=== PATIENT | male | born 1975 | race African-American/Black ===

== ENCOUNTER 2018-12-21 16:19 | Inpatient (IN) | payer MEDICAID ==
[~2018-12-21] VITALS: Ht 175.3 cm; Wt 108.9 kg
[2018-12-21 16:47] VITALS: Ht 175.3 cm; Wt 108.9 kg
[2018-12-21 17:17] LABS: BASOPHIL % 0.4 % (0-2); PLATELET COUNT 134 x10^3mcL (130-400)
[2018-12-21 17:18] LABS: RED CELL DISTRIBUTION WIDTH 15.1 % (11.5-14.5)
[2018-12-21 17:25] LABS: CALCIUM 8.8 mg/dL (8.5-10.1); CHLORIDE SERUM 103 mmol/L (98-107); GFR1 > 60 mL/min; GLUCOSE SERUM 98 mg/dL (74-106); SODIUM SERUM 139 mmol/L (136-145)
[2018-12-21 17:30] LABS: ALBUMIN 3.8 g/dL (3.4-5.0); ALKALINE PHOSPHATASE 130 U/L (46-116); ALT/SGPT 46 U/L (16-63); AST/SGOT 43 U/L (15-37); BILIRUBIN TOTAL 0.52 mg/dL (0.20-1.00); TOTAL PROTEIN, SERUM 7.9 g/dL (6.4-8.2)
[2018-12-21] MEDS ORDERED: ASPIR 8181 MG PO (19:16)
[2018-12-21] MEDS ORDERED: CARVEDILOL25 M1 PO (19:16)
[2018-12-21] MEDS ORDERED: NOR10 PO (19:16)
[2018-12-21] MEDS ORDERED: LISINOPRIL40 MG PO (19:16)
[2018-12-21 20:18] LABS: MAGNESIUM 1.7 mg/dL (1.8-2.4); PHOSPHOROUS 3.5 mg/dL (2.5-4.9)
[2018-12-21 20:26] LABS: FREE T4 0.83 ng/dL (0.76-1.46); FREE THYROXINE INDEX 2.4 ug/dL (1.4-4.5); T4(THYROXINE) 6.3 ug/dL (4.7-13.3)
[2018-12-21 20:29] LABS: T3 TOTAL 1.15 ng/mL
[2018-12-21 20:32] LABS: UA SPECIFIC GRAVITY 1.015 (1.005-1.035); microscopic required? YES; urine erythrocyte TRACE (NEGATIVE)
[2018-12-21 20:45] LABS: AMPHETAMINE QUAL UR NONE DETECTED (See below)
[2018-12-21 22:06] VITALS: BP 137/95
[2018-12-22 05:20] VITALS: BP 121/77
[2018-12-22 05:46] VITALS: BP 121/77
[2018-12-22 06:38] LABS: BASOPHIL % 0.5 % (0-2)
[2018-12-22 06:52] LABS: PLATELET COUNT 121 x10^3mcL (130-400); RED CELL DISTRIBUTION WIDTH 15.5 % (11.5-14.5)
[2018-12-22 07:08] LABS: CALCIUM 8.3 mg/dL (8.5-10.1); CARBON DIOXIDE 25.9 mmol/L (21-32); CHLORIDE SERUM 105 mmol/L (98-107); CREATININE SERUM 1.2 mg/dL (0.7-1.3); GFR1 > 60 mL/min; GLUCOSE SERUM 86 mg/dL (74-106); MAGNESIUM 1.5 mg/dL (1.8-2.4); PHOSPHOROUS 4.8 mg/dL (2.5-4.9); POTASSIUM SERUM 3.9 mmol/L (3.5-5.1); SODIUM SERUM 141 mmol/L (136-145)
[2018-12-22 08:15] VITALS: BP 141/96
[2018-12-22 12:20] VITALS: BP 129/84
[2018-12-22 14:14] VITALS: BP 129/84
== END 2018-12-22 15:37 | disposition home or self-care (01) | DRG 203 ==
LOC: ED 16:19 → DU 19:44
PROVIDERS: ADMIT General Practice
DX: M94.0 Chondrocostal junction syndrome [Tietze] (principal); E83.42 Hypomagnesemia; Z86.74 Personal history of sudden cardiac arrest; I16.0 Hypertensive urgency; Z79.82 Long term (current) use of aspirin; Z68.35 Body mass index [BMI] 35.0-35.9, adult; Z95.810 Presence of automatic (implantable) cardiac defibrillator
CPT/HCPCS: 83880; 84439; G0378; J1885; J3475; J7030

== ENCOUNTER 2019-04-07 13:27 | Emergency (ER) | payer MEDICAID ==
[~2019-04-07] VITALS: Ht 175.3 cm; Wt 95.3 kg
[~2019-04-07 13:27] MED LIST: ASPIR 8181 MG PO; CARVEDILOL25 M1 PO; LISINOPRIL40 MG PO; NOR10 PO
[2019-04-07 13:30] VITALS: Ht 175.3 cm; Wt 95.3 kg
[2019-04-07 15:13] LABS: CALCIUM 9.3 mg/dL (8.5-10.1); CARBON DIOXIDE 28.7 mmol/L (21-32); CHLORIDE SERUM 97 mmol/L (98-107); CREATININE SERUM 0.9 mg/dL (0.7-1.3); GFR1 > 60 mL/min; GLUCOSE SERUM 101 mg/dL (74-106); POTASSIUM SERUM 3.7 mmol/L (3.5-5.1); SODIUM SERUM 137 mmol/L (136-145)
[2019-04-07 15:17] LABS: ALBUMIN 4.2 g/dL (3.4-5.0); ALKALINE PHOSPHATASE 135 U/L (46-116); ALT/SGPT 144 U/L (16-63); AST/SGOT 324 U/L (15-37); BILIRUBIN TOTAL 1.2 mg/dL (0.20-1.00)
[2019-04-07 15:18] LABS: TOTAL PROTEIN, SERUM 9.1 g/dL (6.4-8.2)
[2019-04-07 15:21] LABS: BASOPHIL % 1.1 % (0-2); PLATELET COUNT 181 x10^3mcL (130-400); RED CELL DISTRIBUTION WIDTH 17.9 % (11.5-14.5)
[2019-04-07 18:26] LABS: UA SPECIFIC GRAVITY >=1.030 (1.005-1.035); microscopic required? YES; urine erythrocyte 3+ (NEGATIVE)
[2019-04-07 18:45] LABS: AMPHETAMINE QUAL UR NONE DETECTED (See below)
[2019-04-07 18:55] VITALS: BP 135/83
== END 2019-04-07 18:55 | disposition home or self-care (01) ==
LOC: ED 13:27
PROVIDERS: Emergency Medicine; Student in an Organized Health Care Education/Training Program
DX: F41.9 Anxiety disorder, unspecified (principal); R07.89 Other chest pain; I10 Essential (primary) hypertension; Z98.890 Other specified postprocedural states; Z88.5 Allergy status to narcotic agent
CPT/HCPCS: 83880; J2405

== ENCOUNTER 2020-04-02 13:40 | Emergency (ER) | payer MEDICAID ==
[~2020-04-02] VITALS: Ht 175.3 cm; Wt 86.6 kg
[2020-04-02 13:54] VITALS: BP 140/95
== END 2020-04-02 15:27 | disposition left against medical advice (07) ==
LOC: ED 13:40
DX: R00.2 Palpitations (principal); R07.89 Other chest pain; I10 Essential (primary) hypertension; Z95.810 Presence of automatic (implantable) cardiac defibrillator; Z98.890 Other specified postprocedural states; Z88.5 Allergy status to narcotic agent